=== PATIENT | female | born 1980 | race Caucasian/White ===

== ENCOUNTER 2025-02-12 11:33 | Outpatient (CLI) | payer MEDICAID, SELFPAY ==
--- OUTSIDE RECORDS SUMMARY | 2025-01-04 09:00 | XMS_ITS | Encounter Summary ---
Author Organization [employer] ([place], [place], [place], [place]) Address [address] [place] [address] Care Team Providers Care Wine Blender Name Role Phone Marni Kauffman DO Primary Care Provider [phone] Reason for Referral * Consultation (Routine) - Authorized Specialty Diagnoses / Procedures Referred By Ash t Referred To Contact Occupational Therapy Diagnoses Anterior neck pain Dysphagia Marni Kauffman DO [address] [place] [address] Phone: tel: fax: Referral ID Status Reason Start Date Expiration Date Visits Requested Visits Authorized [id number] Authorized Specialty Services Required 01/04/2025 01/04/2026 1 1 * Consultation (Routine) - Authorized Specialty Diagnoses / Procedures Referred By Ash cee Referred To Contact Physical Therapy Diagnoses Anterior neck pain Marni Kauffman DO [address] [place] [address] Phone: tel: fax: Referral ID Status Reason Start Date Expiration Date Visits Requested Visits Authorized [id number] Authorized Specialty Services Required 01/04/2025 01/04/2026 1 1 Reason for Visit * Reason Comments Follow-up Labs Encounter Details Date Type Department Care Team (Late st Contact Info) Description 01/04/2025 9:00 AM EDT Office Visit [facility] Primary Care [address] [place] [address] Marni Kauffman DO [address] [place] [address] Encounter to discuss test results (Primary Dx); Dysmenorrhea; Anterior neck pain; Dysphagia Social History Tobacco Use Types Packs/Day Years Used Date Smoking Tobacco: Never Smokeless Tobacco: Never Tobacco Cessation:Counseling Given: Not Answered Alcohol Use Standard Drinks/Week Comments Yes 5 (1 standard drink = 0.6 oz pure alcohol) I do like to sip on a plain shot of alcohol at night. [facility] - Mental Health Answer Date Recorde d Little interest or pleasure in doing things Not at all 01/03/2025 Feeling down, depressed, or hopeless Not at all 01/03/2025 Feeling of Stress Not on file 01/03/2025 Comments No Sex and Gender Information Value Date Recorded Sex Assigned at Not on file Legal Sex Female 9:01 AM CDT Gender Identity Not on file Sexual Orientation Not on file documented as of this encounter Last Filed Vital Signs Vital Sign Reading Time Taken Comments Blood Pressure 106/72 01/04/2025 8:56 AM EDT Pulse 68 01/04/2025 8:56 AM EDT Temperature 36.8 C (98.2 F) 01/04/2025 8:56 AM EDT Respiratory Rate 16 01/04/2025 8:56 AM EDT Oxygen Saturation 99% 01/04/2025 8:56 AM EDT Inhaled Oxygen Concentration - - Weight 61 kg (134 lb 6 oz) 01/04/2025 8:56 AM ED T Height 165.1 cm (5' 5 ) 01/04/2025 8:56 AM EDT Body Mass Index 22.36 01/04/2025 8:56 AM EDT documented in this encounter Progress Notes * Marni Kauffman DO - 01/04/2025 9:00 AM EDT Subjective Jada Joseph is a 44 y.o. female with active problems as below presents to clinic today for Follow-up (Labs) HPI Saw inbound call center agent and opted for total Hysterectomy without Oophorectomy Got a second opinion and saw Dr. Duenas and opted for surgical debulking instead of hysterectomy. Has agitation with ashwaganda and ginseng Can tolerate caffeine L -theonine makes her tired and gives her . Tolerated passionflower and reshi, Rebeca, Rhodioloa - gives weird dreams and makes her tired. Patient Active Problem List Diagnosis Date Noted Anterior neck pain 01/04/2025 Dysphagia 12/03/2024 Anxiety disorder with panic attacks 12/03/2024 Multiple food allergies 11/30/2024 Asthma 11/30/2024 Shingles of eyelid 11/30/2024 Menorrhagia 11/30/2024 Dysmenorrhea 11/30/2024 Uterine fibroid 06/20/2024 Perimenopausal 11/29/2021 Small intestinal bacterial overgrowth (SIBO) 11/29/2021 Current Outpatient Medications Medication Instructions albuterol 90 mcg/actuation inhaler 2 puffs, inhalation, Every 6 hours PRN clonazePAM (KLONOPIN) 0.5 mg, oral, 2 times daily montelukast (SINGULAIR) 10 mg, oral, Every Night Trulance 3 mg tab 1 tablet, Daily valACYclovir (VALTREX) 1,000 mg, oral, 3 times daily Allergies Allergen Reactions Egg Anaphylaxis, Diarrhea, Hives, Itching, Nausea And Vomiting and Swelling Milk Anaphylaxis, Diarrhea, Hives, Nausea And Vomiting, Rash and Swelling Other Anaphylaxis Milk/eggs/formaldehyde The following portions of the patient's chart were reviewed in this encounter and updated as appropriate: past medical history, surgical history, family history, tobacco history, allergies and medications. ROS documented in HPI Objective Vitals: 01/04/25 0856 BP: 106/72 BP Location: Right arm Patient Position: Sitting Cuff Size: Adult Long Pulse: 68 Resp: 16 Temp: 98.2 ??F (36.8 ??C) SpO2: 99% Weight: 61 kg (134 lb 6 oz) Height: 1.651 m (5' 5 ) Physical Exam Constitutional: Appearance: Normal appearance. She is normal weight. She is not ill-appearing. HENT: Head: Normocephalic and atraumatic. Nose: Nose normal. Neurological: General: No focal deficit present. Mental Status: She is alert and oriented to person, place, and time. Mental status is at baseline. Psychiatric: Mood and Affect: Mood normal. Behavior: Behavior normal. Thought Content: Thought content normal. Judgment: Judgment normal. Results: Office Visit on 11/30/2024 Component Date Value Ref Range Status Estradiol, Sensitive 12/21/2024 124.8 pg/mL Final Comment: Female: Follicular: 30.0 - 100.0 Luteal: 70.0 - 300.0 Postmenopausal: < 15.0 Methodology: Liquid chromatography tandem mass spectrometry(LC/MS/MS) Testosterone, Total, LC/MS 12/21/2024 19.1 ng/dL Final Comment: Female: Premenopausal 10.0 - 55.0 Postmenopausal 7.0 - 40.0 Testosterone, Free 12/21/2024 0.46 0.10 - 0.85 ng/dL Final % Free Testosterone 12/21/2024 2.43 0.50 - 2.80 % Final DHEA-Sulfate 12/21/2024 80.9 41.2 - 243.7 ug/dL Final Progesterone 12/21/2024 23.6 ng/mL Final Comment: Follicular phase 0.1 - 0.9 Luteal phase 1.8 - 23.9 Ovulation phase 0.1 - 12.0 First trimester 11.0 - 44.3 Second trimester 25.4 - 83.3 Third trimester 58.7 - 214.0 Postmenopausal 0.0 - 0.1 LH 12/21/2024 5.8 mIU/mL Final Comment: Adult Female Range Follicular phase 2.4 - 12.6 Ovulation phase 14.0 - 95.6 Luteal phase 1.0 - 11.4 Postmenopausal 7.7 - 58.5 FSH 12/21/2024 5.1 mIU/mL Final Comment: Adult Female Range Follicular phase 3.5 - 12.5 Ovulation phase 4.7 - 21.5 Luteal phase 1.7 - 7.7 Postmenopausal 25.8 - 134.8 Cortisol - AM 12/21/2024 10.4 6.2 - 19.4 ug/dL Final Assessment/Plan: Jada Joseph is a 44 y.o. female who has been evaluated today for The primary encounter diagnosis was Encounter to discuss test results. Diagnoses of Dysmenorrhea, Anterior neck pain, and Dysphagia were also pertinent to this visit. Discussion: Low DHEA, and suboptimal testosterone Normal estradiol and high normal progesterone Low normal cortisol Peridoxical reaction to medications Strong adrenal response. Will get complete DUCTH test to further evaluate. Agree with Dr. Duenas doing endometrial debridement and fibroid removal without hysterectomy. ICD-10-CM ICD-9-CM 1. Encounter to discuss test results Z71.2 V65.49 2. Dysmenorrhea N94.6 625.3 3. Anterior neck pain M54.2 723.1 AMB REFERRAL TO PHYSICAL THERAPY EVALUATE, TREAT AND PLAN OF CARE AMB REFERRAL TO OCCUPATIONAL THERAPY EVALUATE, TREAT AND PLAN OF CARE 4. Dysphagia R13.10 787.20 AMB REFERRAL TO OCCUPATIONAL THERAPY EVALUATE, TREAT AND PLAN OF CARE New Prescriptions No medications on file Modified Medications No medications on file Previous Medications ALBUTEROL 90 MCG/ACTUATION INHALER Inhale 2 puffs by mouth every 6 (six) hours as needed for shortness of breath or wheezing. CLONAZEPAM (KLONOPIN) 0.5 MG TABLET Take 1 tablet (0.5 mg total) by mouth 2 (two) times daily. Max Daily Amount: 1 mg MONTELUKAST (SINGULAIR) 10 MG TABLET Take 1 tablet (10 mg total) by mouth nightly. TRULANCE 3 MG TAB Take 1 tablet by mouth daily. VALACYCLOVIR (VALTREX) 1000 MG TABLET Take 1 tablet (1,000 mg total) by mouth 3 (three) times daily. Return in about 4 weeks (around 02/01/2025) for Integrative Lab Review ( 30 Min), Ok for Telehealth.SAMOAN testing review Time spent caring for the patient on today's visit including review of patient chart prior to entering the patient care room, outside record review, [id number] time with the patient for complaints,history and examination, discussing care options, and planning next follow-up was 45 minutes total by me. Marni Kauffman DO This note was partially generated using [facility] Dictation System, and there may be some incorrect words, spellings, and punctuation that were not noted in checking the note before saving. Note to Patient: The Century Cure Act makes medical noted like these available to patients in the interest of transparency. However, be advised this is a medical document. It is intended as peerto peer communication. It is written in medical language and may contain abbreviations or verbiage that are unfamiliar. It may appear blunt or direct. Medical documents are intended to carry relevantinformation, facts as evident, and the clinical opinion of the physician. documented in this encounter Plan of Treatment Upcoming Encounters Date Type Department Care Team (Latest Contact Info) Description 02/20/2025 3:45 PM EDT Video - Telemedicine [facility] Primary Care [address] [place] [address] Marni Kauffman DO [address] [place], [place] [id number] 02/25/2025 9:31 AM EDT Hospital Encounter [facility] Surgery Department [address] [place] [address] Rebeka Taveras MD [address] [facility] [address] [place], [place] [id number] 02/25/2025 9:31 AM EDT - 02/25/2025 1:51 PM EDT Surgery [facility] Surgery Department [address] [place] [address] Rebeka Taveras MD [address] [place], [place] [id number] LAPAROSCOPY WITH ROBOTIC ASSISTNACE AND LASER, MYOMECTOMY, POSSIBLE RESECTION OF ENDOMETRIOSIS, HYSTEROSCOPY, ENDOMETRIAL ABLATION Scheduled Procedures Name Priority Associated Diagnoses Date/Ti me ROBOTIC LAPAROSCOPY,MYOMECTOMY Submucous leiomyoma of uterus Intramural leiomyoma of uterus Excessive or frequent menstruation Personal history of diseases of blood and blood-forming organs Polyp of corpus uteri 02/25/2025 9:31 AM EDT HYSTEROSCOPY, THERAPEUTIC Submucous leiomyoma of uterus Intramural leiomyoma of uterus Excessive or frequent menstruation Personal history of diseases of blood and blood-forming organs Polyp of corpus uteri 02/25/2025 9:31 AM EDT ABLATION, ENDOMETRIUM Submucous leiomyoma of uterus Intramural leiomyoma of uterus Excessive or frequent menstruation Personal history of diseases of blood and blood-forming organs Polyp of corpus uteri 02/25/2025 9:31 AM EDT Scheduled Referrals Name Type Priority Associated Diagnoses Order Schedule AMB REFERRAL TO PHYSICAL THERAPY EVALUATE, TREAT AND PLAN OF CARE Outpatient Referral Routine Anterior neck pain Expected: 01/04/2025 (Approximate), Expires: 01/04/2026 AMB REFERRAL TO OCCUPATIONAL THERAPY EVALUATE, TREAT AND PLAN OF CARE Outpatient Referral Routine Anterior neck pain Dysphagia Expected: 01/04/2025 (Approximate), Expires: 01/04/2026 documented as of this encounter Visit Diagnoses Diagnosis Encounter to discuss test results- Primary Other specified counseling Dysmenorrhea Anterior neck pain Cervicalgia Dysphagia Dysphagia, unspecified Submucous leiomyoma of uterus Intramural leiomyoma of uterus Excessive or frequent menstruation Personal history of diseases of blood and blood-forming organs Polyp of corpus uteri documented in this encounter Care Teams Wine Blender Relationship Specialty Start Date End Date Marni Kauffman DO [address] [place] [address] PCP - General Family Medicine 11/30/24 documented as of this encounter
--- OUTSIDE RECORDS SUMMARY | 2025-02-12 11:36 | XMS_ITS | Clinical Summary ---
Author Organization [employer] ([place], [place], [place], [place]) Address [address] [place] [address] Care Team Providers Care Smelter Charger Name Role Phone DalyMarni Primary Care Provider [phone] Allergies Active Allergy Reactions Criticality Noted Date Comments Egg Anaphylaxis,Diarrhea ,Hive s,Itching,Nausea And Vomiting,Swelling High 1978 Milk Anaphylaxis,Diarrhea ,Hive s,Nausea And Vomiting,Rash,Swelling High 1978 Other Anaphylaxis High 09/11/2020 Milk/eggs/formaldehyde Medications montelukast (Singulair) 10 mg tabletIndicatio ns:Asthma Take 1 tablet (10 mg total) by mouth nightly. 30 tablet 11 5 Active albuterol 90 mcg/actuation inhalerIndicati ons:Asthma Inhale 2 puffs by mouth every 6 (six) hours as needed for shortness of breath or wheezing. 1 Inhaler 11 5 Active valACYclovir (VALTREX) 1000 MG tabletIndicatio ns:Shingles of eyelid Take 1 tablet (1,000 mg total) by mouth 3 (three) times daily. 90 tablet 3 5 Active clonazePAM (KlonoPIN) 0.5 MG tabletIndicatio ns:Anxiety disorder with panic attacks Take 1 tablet (0.5 mg total) by mouth 2 (two) times daily. Max Daily Amount: 1 mg 60 tablet 2 5 Active Trulance 3 mg tab Take 1 tablet by mouth daily. 5 Active Active Problems Problem Noted Date Diagnosed Date Anterior neck pain 01/04/2025 Dysphagia 12/03/2024 Anxiety disorder with panic attacks 12/03/2024 Multiple food allergies 11/30/2024 Asthma 11/30/2024 Shingles of eyelid 11/30/2024 Menorrhagia 11/30/2024 Dysmenorrhea 11/30/2024 Uterine fibroid 06/20/2024 Overview (11/30/2024): Transvaginal ultrasound and MRI results showing fibroids Perimenopausal 11/29/2021 Overview (11/30/2024): Unusually heavy periods with more pain. Take maximum dosage of motrin for several days a month and bleed during ovulation as well. 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) Encounters Date Type Department Care Team Description 01/04/2025 9:00 AM EDT Office Visit [facility] Primary Care [address] [place] [address] [address] Marni Kauffman DO Encounter to discuss test results (Primary Dx); Dysmenorrhea; Anterior neck pain; Dysphagia 01/04/2025 Travel 01/01/2025 Telephone [facility] Primary Care [address] [place] [place] [address] Marni Kauffman DO FORMS REQUEST 12/21/2024 Telephone [facility] Primary Care [address] [place] [address] Marni Kauffman DO ORDER REQUEST 12/18/2024 Telephone [facility] Primary Care [address] [place] [address] Marni Kuaffman DO CHECK STATUS OF EXISTING REFERRAL 12/14/2024 Telephone [facility] FORENSIC PATHOLOGIST - FAST FELT [address] [place] [address] Tootie Turner DO Procedure (Called pt to schedule her surgery, she will call me back when she is ready to schedule it) 12/12/2024 10:40 AM EDT Office Visit [facility] FORENSIC PATHOLOGIST [address] [address] Tootie Turner DO Menorrhagia with regular cycle (Primary Dx); Dysmenorrhea; Intramural and submucous leiomyoma of uterus 12/12/2024 Surgery Prep [facility] FORENSIC PATHOLOGIST [facility] [address] [place] [address] Sara Yeboah RN Menorrhagia with regular cycle (Primary Dx); Dysmenorrhea; Intermenstrual bleeding 11/30/2024 2:30 PM EDT Office Visit [facility] Primary Care [address] [place] [address] Marni Kauffman DO Encounter to establish care (Primary Dx); Multiple food allergies; Asthma; Small intestinal bacterial overgrowth (SIBO); Dysmenorrhea; Menorrhagia; Uterine fibroid; Perimenopausal; Shingles of eyelid; Anxiety disorder with panic attacks; Dysphagia 11/19/2024 Abstract [facility] Primary Care [address] [place] [address] [place] [address] Marni Kauffman DO from Last 3 Months Family History Medical History Relation Name Comments Hypertension Father Mike Thyroid disease Maternal Aunt Debora Alcohol abuse Maternal Grandfather Otis Asthma Mother Prabha Breast cancer Mother Prabha She had M.S. s pascale 1975 but ultimately of cancer a year ago Heart disease Paternal Grandmother Paulina Vision loss Paternal Grandmother Paulina Macular degeneration Relation Name Status Comments Father Mike Maternal Aunt Debora Maternal Grandfather Otis Mother Prabha Paternal Grandmother Paulina Social History Tobacco Use Types Packs/Day Years Used Date Smoking Tobacco: Never Smokeless Tobacco: Never Tobacco Cessation:Counseling Given: Not Answered Alcohol Use Standard Drinks/Week Comments Yes 5 (1 standard drink = 0.6 oz pure alcohol) I do like to sip on a plain shot of alcohol at night. [facility] - Mental Health Answer Date Recorde d [...] on file Sexual Orientation Not on file Last Filed Vital Signs Vital Sign Reading [...] Mass Index 22.36 01/04/2025 8:56 AM EDT Plan of Treatment Upcoming Encounters Date Type Department Care Team (Latest Contact Info) Description 02/20/2025 3:45 PM EDT Video - Telemedicine [facility] Primary Care [address] [place] [address] Marni Kauffman DO [address] [place], [place] [id number] 02/25/2025 9:31 AM EDT Hospital Encounter [facility] Surgery Department [address] [place] [address] Rebeka Taveras MD [address] [facility] [address] [place] [address] 02/25/2025 9:31 AM EDT - 02/25/2025 1:51 PM EDT Surgery [facility] Surgery Department [address] [place] [address] Rebeka Taveras MD [address] [facility] [address] [place] [address] LAPAROSCOPY WITH ROBOTIC ASSISTNACE AND LASER, MYOMECTOMY, [...] of corpus uteri 02/25/2025 9:31 AM EDT Health Maintenance Due Date Last Done Comments CT Colonography 1978 Colonoscopy 1978 Colorectal Cancer Screening 1978 FOBT/FIT 1978 Fit-DNA (Cologuard) 1978 Sigmoidoscopy 1978 HIV Screening 1993 Hepatitis C Screening 1996 DTAP/TDAP/TD VACCINES (1 - Tdap) 1997 Pneumococcal Vaccine: 0-49 Years (1 of 2 - PCV) 1996 Pap Smear 1999 Breast Cancer Screening 2018 Lipid Panel 2023 COVID-19 VACCINE (2 - season) 2024 Influenza Vaccine (#1) 2025 Depression Screening (12+) 01/03/2026 01/03/2025 Tobacco Cessation Counseling and Screening (12+) 01/0401/04/2025 Procedures Procedure Name Priority Date/Time Associated Diagnosis Comments CORTISOL, AM Routine 12/21/2024 8:20 AM EDT Dysmenorrhea Menorrhagia Uterine fibroid Perimenopausal FSH/LH Routine 12/21/2024 8:20 AM EDT Dysmenorrhea Menorrhagia Uterine fibroid Perimenopausal PROGESTERONE Routine 12/21/2024 8:20 AM EDT Dysmenorrhea Menorrhagia Uterine fibroid Perimenopausal DHEA SULFATE Routine 12/21/2024 8:20 AM EDT Dysmenorrhea Menorrhagia Uterine fibroid Perimenopausal TESTOSTERONE, F EQLIB+T LC/MS Routine 12/21/2024 8:20 AM EDT Dysmenorrhea Menorrhagia Uterine fibroid Perimenopausal ESTRADIOL, SENSITIVE Routine 12/21/2024 8:20 AM EDT Dysmenorrhea Menorrhagia Uterine fibroid Perimenopausal from Last 3 Months Results * ESTRADIOL, SENSITIVE (12/21/2024 8:20 AM EDT) Estradiol, Sensitive 124.8 pg/mL [facility] Comment: Female: Follicular: 30.0 - 100.0 Luteal: 70.0 - 300.0 Postmenopausal: < 15.0 Methodology: Liquid chromatography tandem mass spectrometry(LC/MS/MS) Blood 12/21/2024 8:20 AM EDT 12/21/2024 Narrative [facility] - 12/28/2024 3:06 AM EDT Test(s) [id number], Sensitive was developed and its performance characteristics determined by [facility]. It has not been cleared or approved by the Food and Drug Administration. Performed at: 01 - [address] [id number] Information Writer: Arpita Phan MD, Phone: [phone] us Nova White DO LAB BLOOD ORDERABLES Final Resul t [facility] * Testosterone, F Eqlib+T LC/MS (12/21/2024 8:20 AM EDT) Testosterone, Total, LC/MS 19.1 ng/dL [facility] Comment: Female: Premenopausal 10.0 - 55.0 Postmenopausal 7.0 - 40.0 Testosterone, Free 0.46 0.10 - 0.85 ng/dL [facility] % Free Testosterone 2.43 0.50 - 2.80 % [facility] 12/21/2024 8:20 AM EDT 12/21/2024 Narrative [facility] - 12/28/2024 3:06 AM EDT Test(s) [id number], Total, LC/MS was developed and its performance characteristics determined by [facility]. It has not been cleared or approved by the Food and Drug Administration. Performed at: [address] [id number] Information Writer: Arpita Phan MD, Phone: [phone] Nova White LAB BLOOD ORDERABLES Final Resul t Performing Organization Address [facility] de Phone Number [facility] * FSH/LH (12/21/2024 8:20 AM EDT) LH 5.8 mIU/mL [facility] Comment: Adult Female Range Follicular phase 2.4 - 12.6 Ovulation phase 14.0 - 95.6 Luteal phase 1.0 - 11.4 Postmenopausal 7.7 - 58.5 FSH 5.1 mIU/mL [facility] Comment: Adult Female Range Follicular phase 3.5 - 12.5 Ovulation phase 4.7 - 21.5 Luteal phase 1.7 - 7.7 Postmenopausal 25.8 - 134.8 Blood 12/21/2024 8:20 AM EDT 12/21/2024 Narrative [facility] - 12/28/2024 3:06 AM EDT Performed at: - [address] [id number] Information Writer: Jose Alejandro Augustin PhD, Phone: [phone] Nova White LAB BLOOD ORDERABLES Final Resul t Performing Organization Address [facility] Co de Phone Number [facility] * Progesterone (12/21/2024 8:20 AM EDT) Progesterone 23.6 ng/mL [facility] Comment: Follicular phase 0.1 - 0.9 Luteal phase 1.8 - 23.9 Ovulation phase 0.1 - 12.0 First trimester 11.0 - 44.3 Second trimester 25.4 - 83.3 Third trimester 58.7 - 214.0 Postmenopausal 0.0 - 0.1 Blood 12/21/2024 8:20 AM EDT 12/21/2024 Narrative [facility] - 12/28/2024 3:06 AM EDT Performed at: [address] [place] [id number] Information Writer: Jose Alejandro Augustin PhD, Phone: [phone] Nova White DO LAB BLOOD ORDERABLES Final Resul t Performing Organization Address [facility] de Phone Number [facility] * DHEA Sulfate (12/21/2024 8:20 AM EDT) DHEA-Sulfate 80.9 41.2 - 243.7 ug/dL [facility] Blood 12/21/2024 8:20 AM EDT 12/21/2024 Narrative [facility] - 12/28/2024 3:06 AM EDT Performed at: [address] [place] [id number] Information Writer: Jose Alejandro Augustin PhD, Phone: [phone] Nova White DO LAB BLOOD ORDERABLES Final Resul t Performing Organization Address [facility] de Phone Number [facility] * Cortisol, AM (12/21/2024 8:20 AM EDT) Cortisol - AM 10.4 6.2 - 19.4 ug/dL [facility] Blood 12/21/2024 8:20 AM EDT 12/21/2024 Narrative [facility] - 12/28/2024 3:06 AM EDT Performed at: [address] [place] [id number] Information Writer: Jose Alejandro Augustin PhD, Phone: [phone] Nova White DO LAB BLOOD ORDERABLES Final Resul t Performing Organization Address [facility] Co de Phone Number [facility] from Last 3 Months Insurance MEDICAID OF [place] Member Subscriber Plan / Payer (Ef fective 2024-Present) Name:Willie Josephn Relation to Subscriber:Self Name:Willie Josephn Payer ID:[id number] Group ID:Not on file Type:Not on file Address: [address] MEDICAID Care Teams Smelter Charger Relationship Specialty Start Date End Date Marni Kauffman DO [address] [place] [address] PCP - General Family Medicine 11/30/24
--- OUTSIDE RECORDS SUMMARY | 2025-02-12 11:36 | XMS_ITS | Encounter Summary ---
Author Organization [employer] ([place], [place], [place], [place]) Address [address] [place] [address] Care Team Providers Care Slubber Machine Operator Name Role Phone Kesha Maxwell DO Primary Care Provider Reason for Visit * Reason Onset Date Comments ORDER REQUEST 12/21/2024 Encounter Details Date Type Department Care Team (Late st Contact Info) Description 12/21/2024 Telephone [facility] Primary [facility] [address] [place] [place] [address] Kesha Maxwell DO [address] [place] [address] ORDER REQUEST Social History Tobacco Use Types Packs/Day Years Used Date Smoking Tobacco: Never Smokeless Tobacco: Never Alcohol Use Standard Drinks/Week Comments Yes 5 (1 standard drink = 0.6 oz pure alcohol) I do like to sip on a plain shot of alcohol at night. [facility] - Mental Health Answer Date Recorde d [...] on file documented as of this encounter Functional Status documented as of this encounter Miscellaneous Notes * Telephone Encounter - Bot NIRALI James - 12/21/2024 9:13 AM EDT FROM: Leandra Lange TO: [facility] CLINICAL RADIOLOGIC TECH [[id number]] SUBJECT: Order Request PROVIDER: KESHA MAXWELL [[id number]] DEPARTMENT: [facility] [address] [[id number]] ENCOUNTER REASON FOR CALL: ORDER REQUEST ENCOUNTER TYPE: Telephone REASON FOR CALL: Order or Lab or Durable Medical Equipment DME or Other Medical Supplies Request PATIENT CALLING TO OBTAIN ORDER FOR: Blood Work BLOOD WORK TYPE: N/a DIAGNOSIS/REASON FOR ORDER: N/a DISCUSSED WITH PROVIDER? Yes ORDER TO BE SENT TO: Kesha Maxwell LAST VISIT: 2024-11-30 NEXT VISIT: 2025-01-04 MESSAGE PRIORITY: Routine ADDITIONAL INFORMATION: Pt currently at the lab and they don't have orders, I see them in the chart, transfer to office forassistance was successful. CALLER'S NAME: Jada Joseph RELATION TO PATIENT: Self [1] PREFERRED LANGUAGE: Japanese BEST CALL BACK PHONE NUMBER: Home Phone: ([phone]) WHAT IS THE BEST WAY FOR THE OFFICE TO CONTACT YOU?: OK to leave message on voicemail documented in this encounter Plan of Treatment Upcoming Encounters Date Type Department Care Team (Latest Contact Info) Description 02/20/2025 3:45 PM EDT Video - Telemedicine [facility] Primary [facility] [address] [place] [place] [address] Kesha Maxwell DO [address] [place] [address] 02/25/2025 9:31 AM EDT Hospital Encounter [facility] Surgery Department [address] [place] [address] Rebeka Taveras MD [address] [facility] [address] [place] [address] 02/25/2025 9:31 AM EDT - 02/25/2025 1:51 PM EDT Surgery [facility] Surgery Department [address] [place] [address] Rebeka Taveras MD [address] [facility] [address] [place] [address] LAPAROSCOPY WITH ROBOTIC ASSISTNACE AND LASER, MYOMECTOMY, POSSIBLE RESECTION OF ENDOMETRIOSIS, HYSTEROSCOPY, ENDOMETRIAL ABLATION Scheduled Procedures Name Priority Associated Diagnoses Date/Ti nj ROBOTIC LAPAROSCOPY,MYOMECTOMY Submucous leiomyoma of uterus Intramural [...] of corpus uteri 02/25/2025 9:31 AM EDT documented as of this encounter Visit Diagnoses Not on filedocumented in this encounter Care Teams Slubber Machine Operator Relationship Specialty Start Date End Date Kesha Maxwell DO [address] [place], [place] [address] PCP - General Family Medicine 11/30/24 documented as of this encounter
--- OUTSIDE RECORDS SUMMARY | 2025-02-12 11:36 | XMS_ITS | Encounter Summary ---
Author Organization [employer] ([place], [place], [place], [place]) Address [address] [place] [address] Care Team Providers Care Research Phlebotomist Name Role Phone Marni Kauffman DO Primary Care Provider [phone] Encounter Details Date Type Department Care Team (Latest Contact Info) Description 01/04/2025 Travel Social History Tobacco Use Types Packs/Day Years Used Date Smoking Tobacco: Never Smokeless Tobacco: Never Alcohol Use Standard Drinks/Week Comments Yes 5 (1 standard drink = 0.6 oz pure alcohol) I do like to sip on a plain shot of alcohol at night. [facility] - Mental Health Answer Date [...] on file documented as of this encounter Plan of Treatment Upcoming Encounters Date Type Department Care Team (Latest Contact Info) Description 02/20/2025 3:45 PM EDT Video - Telemedicine [facility] Primary Care [address] [place] [address] Marni Kauffman DO [address] [place] [address] 02/25/2025 9:31 AM EDT Hospital Encounter [facility] Surgery Department [address] [place] [address] Rebeka Taveras MD [address] [place] [address] 02/25/2025 9:31 AM EDT - 02/25/2025 1:51 PM EDT Surgery [facility] Surgery Department [address] [place] [address] Rebeka Taveras MD [address] [place] [address] LAPAROSCOPY WITH ROBOTIC ASSISTNACE AND LASER, MYOMECTOMY, [...] on filedocumented in this encounter Care Teams Research Phlebotomist Relationship Specialty Start Date End Date Marni Kauffman DO [address] [place] [address] PCP - General Family Medicine 11/30/24 documented as of this encounter
--- OUTSIDE RECORDS SUMMARY | 2025-02-12 11:36 | XMS_ITS | Encounter Summary ---
Author Organization [employer] ([place], [place], [place], [place]) Address [address] [place] [address] Care Team Providers Care Systems Technician Name Role Phone Kesha Maxwell DO Primary Care Provider [phone] Reason for Visit * Reason Onset Date Comments FORMS REQUEST 01/01/2025 Encounter Details Date Type Department Care Team (Late st Contact Info) Description 01/01/2025 Telephone [facility] Primary Care [address] [place] [address] Kesha Maxwell DO [address] [place] [address] FORMS REQUEST Social History Tobacco Use Types Packs/Day Years Used Date Smoking Tobacco: Never Smokeless Tobacco: Never Alcohol Use Standard Drinks/Week Comments Yes 5 (1 standard drink = 0.6 oz pure alcohol) I do like to sip on a plain shot of alcohol at night. Comments No Sex and Gender Information Value Date Recorded Sex Assigned at Not on file Legal Sex Female 9:01 AM CDT Gender Identity Not on file Sexual Orientation Not on file documented as of this encounter Miscellaneous Notes * Telephone Encounter - Gabbi Fallon CMA - 01/01/2025 2:53 PM EDT My chart message sent * Telephone Encounter - Howie CAMPOVERDE Onenessa James - 01/01/2025 11:37 AM EDT FROM: Veronica Colindres TO: [facility] SCRAPER OPERATOR STAFF [[id number]] SUBJECT: Forms Request PROVIDER: KESHA MAXWELL [[id number]] DEPARTMENT: [facility] [address] [[id number]] ENCOUNTER REASON FOR CALL: FORMS REQUEST ENCOUNTER TYPE: Telephone REQUEST TYPE: ALL Other Forms TYPE OF FORM REQUESTING: Other IF OTHER FORM REQUEST, PLEASE SPECIFY: Copies of recent labs done 12/21/24 PATIENT REQUESTING TO: Fax form FAX LOCATION: Dr. Darcy NYE LOCATION PHONE NUMBER: [phone] FAX NUMBER [phone] HAS PROBLEM BEEN DISCUSSED WITH PROVIDER? Yes APPOINTMENT OFFERED? No IF NO APPOINTMENT OFFERED, EXPLAIN: Just wants copies of labs faxed CHANNEL USED TO SEND FORM: Other IF OTHER CHANNEL, PLEASE SPECIFY: Na DATE FORM WAS DROPPED OFF/SENT: 2025-01-01 FORM GIVEN/SENT TO: Na DATE FORM NEEDED BACK: 2025-01-01 LAST VISIT DATE IS NOT APPLICABLE: Yes NEXT VISIT DATE IS NOT APPLICABLE: Yes MESSAGE PRIORITY: Routine CALLER'S NAME: aJda Joseph RELATION TO PATIENT: Self [1] PREFERRED LANGUAGE: Bangladeshi BEST CALL BACK PHONE NUMBER: Home Phone: ([phone]) WHAT IS THE BEST WAY FOR THE OFFICE TO CONTACT YOU?: OK to leave message with whoever answers the phone documented in this encounter Plan of Treatment Upcoming Encounters Date Type Department Care Team (Latest Contact Info) Description 02/20/2025 3:45 PM EDT Video - Telemedicine [facility] Primary Care [address] [place] [address] Kesha Maxwell, DO [address] [place], [place] [address] 02/25/2025 9:31 AM EDT Hospital Encounter [facility] Surgery Department [address] [place] [address] Rebeka Taveras MD [address] [facility] [address] [place], [place] [address] 02/25/2025 9:31 AM EDT - 02/25/2025 1:51 PM EDT Surgery [facility] Surgery Department [address] [place] [address] Rebeka Taveras MD [address] [place] [address] LAPAROSCOPY WITH ROBOTIC ASSISTNACE AND LASER, MYOMECTOMY, POSSIBLE RESECTION OF ENDOMETRIOSIS, HYSTEROSCOPY, ENDOMETRIAL ABLATION Scheduled Procedures Name Priority Associated Diagnoses Date/Ti pa ROBOTIC LAPAROSCOPY,MYOMECTOMY Submucous leiomyoma of uterus Intramural [...] on filedocumented in this encounter Care Teams Systems Technician Relationship Specialty Start Date End Date Kesha Maxwell DO [address] [place] [address] PCP - General Family Medicine 11/30/24 documented as of this encounter
--- OUTSIDE RECORDS SUMMARY | 2025-02-12 11:36 | XMS_ITS | Referral Summary ---
Author Organization [employer] ([place], [place], [place], [place]) Address [address] [place] [address] Care Team Providers Care Youth Worker Name Role Phone Marni Kauffman DO Primary Care Provider [phone] Encounters Date Type Department Care Team Description 01/04/2025 Travel 01/04/2025 9:00 AM EDT Office Visit [facility] Primary Care [address] [place] [address] Marni Kauffman DO Encounter to discuss test results (Primary Dx); Dysmenorrhea; Anterior neck pain; Dysphagia 01/01/2025 Telephone [facility] Primary Care [address] [place] [address] Marni Kauffman DO FORMS REQUEST 12/21/2024 Telephone [facility] Primary Care [address] [place] [address] Marni Kauffman DO ORDER REQUEST 12/18/2024 Telephone [facility] Primary Care [address] [place] [address] Marni Kauffman DO CHECK STATUS OF EXISTING REFERRAL 12/14/2024 Telephone [facility] LOG DECKMAN - [employer] [address] [facility] [address] [place] [address] Tootie Turner DO Procedure (Called pt to schedule her surgery, she will call me back when she is ready to schedule it) 12/12/2024 Surgery Prep [facility] LOG DECKMAN - [place] [address] [place] [address] Sara Yeboah RN Menorrhagia with regular cycle (Primary Dx); Dysmenorrhea; Intermenstrual bleeding 12/12/2024 10:40 AM EDT Office Visit [facility] LOG DECKMAN - [place] [address] [place] [address] Tootie Turner DO Menorrhagia with regular cycle (Primary Dx); Dysmenorrhea; Intramural and submucous leiomyoma of uterus 11/30/2024 2:30 PM EDT Office Visit [facility] Primary Care [address] [place] [address] Marni Kauffman DO Encounter to establish care (Primary Dx); Multiple food allergies; Asthma; Small intestinal bacterial overgrowth (SIBO); Dysmenorrhea; Menorrhagia; Uterine fibroid; Perimenopausal; Shingles of eyelid; Anxiety disorder with panic attacks; Dysphagia 11/19/2024 Abstract [facility] Primary Care [address] [place] [address] Marni Kauffman DO from Last 3 Months Allergies Active Allergy Reactions Criticality Noted Date [...] Daily Amount: 1 mg 60 tablet 2 Active Trulance 3 mg tab Take 1 tablet by mouth daily. 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 [facility] - Mental Health Answer Date Recorde [...] 02/20/2025 3:45 PM EDT Video - Telemedicine [facility] Primary Care [address] [place] [address] Marni Kauffman DO [address] [place] [address] 02/25/2025 9:31 AM EDT Hospital Encounter [facility] Surgery Department [address] [place] [address] Rebeka Taveras MD [address] [facility] [address] [place] [address] 02/25/2025 9:31 AM EDT - 02/25/2025 1:51 PM EDT Surgery [facility] Surgery Department [address] [place] [address] Rebeka Taveras MD [address] [facility] [address] [place] [address] LAPAROSCOPY WITH ROBOTIC ASSISTNACE AND LASER, MYOMECTOMY, POSSIBLE RESECTION OF ENDOMETRIOSIS, HYSTEROSCOPY, ENDOMETRIAL ABLATION Scheduled Procedures Name Priority Associated Diagnoses Date/Ti vt ROBOTIC LAPAROSCOPY,MYOMECTOMY Submucous leiomyoma of uterus Intramural [...] of corpus uteri 02/25/2025 9:31 AM EDT Procedures Procedure Name Priority Date/Time Associated Diagnosis [...] * ESTRADIOL, SENSITIVE (12/21/2024 8:20 AM EDT) Pathologist [facility] Estradiol, Sensitive 124.8 pg/mL [facility] Comment: Female: Follicular: 30.0 - 100.0 Luteal: 70.0 - 300.0 Postmenopausal: < 15.0 Methodology: Liquid chromatography tandem mass spectrometry(LC/MS/MS) Blood 12/21/2024 8:20 AM EDT 12/21/2024 Narrative [facility] - 12/28/2024 3:06 AM EDT Test(s) [id number], Sensitive was developed and its performance characteristics determined by [facility]. It has not been cleared or approved by the Food and Drug Administration. Performed at: - [facility] [id number] Music Store Manager: Arpita Phan MD, Phone: [phone] [facility] LAB BLOOD ORDERABLES Final Resul t Performing Organization Address [facility] de Phone Number [facility] * Testosterone, F Eqlib+T LC/MS (12/21/2024 8:20 AM EDT) Testosterone, Total, LC/MS 19.1 ng/dL [facility] Comment: Female: Premenopausal 10.0 - 55.0 Postmenopausal 7.0 - 40.0 Testosterone, Free 0.46 0.10 - 0.85 ng/dL [facility] % Free Testosterone 2.43 0.50 - 2.80 % [facility] 12/21/2024 8:20 AM EDT 12/21/2024 Narrative [facility] - 12/28/2024 3:06 AM EDT Test(s) [id number], Total, LC/MS was developed and its performance characteristics determined by [facility]. It has not been cleared or approved by the Food and Drug Administration. Performed at: [facility] [id number] Music Store Manager: Arpita Phan MD, Phone: [phone] Nova White LAB BLOOD ORDERABLES Final Resul t Performing Organization Address [facility] de Phone Number [facility] * FSH/LH (12/21/2024 8:20 AM EDT) LH 5.8 mIU/mL [facility] Comment: Adult Female Range Follicular phase 2.4 - 12.6 Ovulation phase 14.0 - 95.6 Luteal phase 1.0 - 11.4 Postmenopausal 7.7 - 58.5 FSH 5.1 mIU/mL [facility] Comment: Adult Female Range Follicular phase 3.5 - 12.5 Ovulation phase 4.7 - 21.5 Luteal phase 1.7 - 7.7 Postmenopausal 25.8 - 134.8 Blood 12/21/2024 8:20 AM EDT 12/21/2024 Narrative [facility] - 12/28/2024 3:06 AM EDT Performed at: [address] [place] [id number] Music Store Manager: Jose Alejandro Augustin PhD, Phone: [phone] us Nova White DO LAB BLOOD ORDERABLES Final Resul t Performing Organization Address [facility] de Phone Number [facility] * Progesterone (12/21/2024 8:20 AM EDT) Progesterone 23.6 ng/mL [facility] Comment: Follicular phase 0.1 - 0.9 Luteal phase 1.8 - 23.9 Ovulation phase 0.1 - 12.0 First trimester 11.0 - 44.3 Second trimester 25.4 - 83.3 Third trimester 58.7 - 214.0 Postmenopausal 0.0 - 0.1 Blood 12/21/2024 8:20 AM EDT 12/21/2024 Narrative [facility] - 12/28/2024 3:06 AM EDT Performed at: [address] [id number] Music Store Manager: Jose Alejandro Augustin PhD, Phone: [phone] Nova White DO LAB BLOOD ORDERABLES Final Resul t Performing Organization Address [facility] de Phone Number [facility] * DHEA Sulfate (12/21/2024 8:20 AM EDT) DHEA-Sulfate 80.9 41.2 - 243.7 ug/dL [facility] Blood 12/21/2024 8:20 AM EDT 12/21/2024 Narrative [facility] - 12/28/2024 3:06 AM EDT Performed at: [address] [id number] Music Store Manager: Jose Alejandro Augustin PhD, Phone: [phone] us Nova White DO LAB BLOOD ORDERABLES Final Resul t [facility] * Cortisol, AM (12/21/2024 8:20 AM EDT) Cortisol - AM 10.4 6.2 - 19.4 ug/dL [facility] Blood 12/21/2024 8:20 AM EDT 12/21/2024 Narrative [facility] - 12/28/2024 3:06 AM EDT Performed at: 02 - [facility] [address] [id number] Music Store Manager: Jose Alejandro Augustin PhD, Phone: [phone] us Jareda White DO LAB BLOOD ORDERABLES Final Resul t [facility] from Last 3 Months Insurance MEDICAID [facility] MEDICAID Care Teams Youth Worker Relationship Specialty Start Date End Date Marni Kauffman DO [address] [place] [address] PCP - General Family Medicine 11/30/24
--- OUTSIDE RECORDS SUMMARY | 2025-02-12 11:36 | XMS_ITS | Encounter Summary ---
Author Organization [employer] ([place], [place], [place], [place]) Address [address] [place] [address] Care Team Providers Care Pathologist Name Role Phone Kesha Maxwell DO Primary Care Provider [phone] Reason for Visit * Reason Onset Date Comments Appointment 10/11/2024 Encounter Details Date Type Department Care Team (Late st Contact Info) Description 10/11/2024 Telephone [facility] Primary Care [address] [place] [address] Kesha Maxwell DO [address] [place] [address] Appointment Social History Tobacco Use Types Packs/Day Years Used Date Smoking Tobacco: Never Assessed Comments Unknown Sex and Gender Information Value Date Recorded Sex Assigned at Not on file Legal Sex Female 9:01 AM CDT Gender Identity Not on file Sexual Orientation Not on file documented as of this encounter Miscellaneous Notes * Telephone Encounter - Bot EST [employer] Erika - 10/11/2024 10:27 AM EDT FROM: Delilah Hoyt CSN: TO: [facility] [employer] SALES CONSULTANT STAFF [[id number]] SUBJECT: Appointment Request PROVIDER: KESHA MAXWELL [[id number]] DEPARTMENT: [facility] [[id number]] ENCOUNTER REASON FOR CALL: APPOINTMENT [375] ENCOUNTER TYPE: Telephone REASON FOR APPOINTMENT REQUEST: Requested Provider Unavailable,No Available Appointment REQUESTED PROVIDER: KESHA MAXWELL NEXT AVAILABLE APPOINTMENT SCHEDULED? No LAST VISIT DATE IS NOT APPLICABLE: Yes MESSAGE PRIORITY: Routine ADDITIONAL INFORMATION: No availability for New patient appt out to February. Pt would still like to schedule a New Patient appt after that date if possible. Please call her back at [phone] to schedule. CALLER'S NAME: Jada Joseph RELATION TO PATIENT: Self [1] PREFERRED LANGUAGE: Canadian BEST CALL BACK PHONE NUMBER: Other: ([phone]) WHAT IS THE BEST WAY FOR THE OFFICE TO CONTACT YOU?: OK to leave message on voicemail documented in this encounter Plan of Treatment Upcoming Encounters Date Type Department Care Team (Latest Contact Info) Description 02/20/2025 3:45 PM EDT Video - Telemedicine [facility] Primary Care [address] [place] [address] Kesha Maxwell DO [address] [place], [place] [id number] 02/25/2025 9:31 AM EDT Hospital Encounter [facility] Surgery Department [address] [place] [address] Rebeka Taveras MD [address] [facility] [address] [place], [place] [id number] 02/25/2025 9:31 AM EDT - 02/25/2025 1:51 PM EDT Surgery [facility] Surgery Department [address] [place] [address] Rebeka Taveras MD [address] [facility] [address] [place] [address] LAPAROSCOPY WITH ROBOTIC ASSISTNACE AND LASER, MYOMECTOMY, POSSIBLE RESECTION OF ENDOMETRIOSIS, HYSTEROSCOPY, ENDOMETRIAL ABLATION Scheduled Procedures Name Priority Associated Diagnoses Date/Ti or ROBOTIC LAPAROSCOPY,MYOMECTOMY Submucous leiomyoma of uterus Intramural [...] on filedocumented in this encounter Care Teams Pathologist Relationship Specialty Start Date End Date Kesha Maxwell DO [address] [place] [address] PCP - General Family Medicine 11/30/24 documented as of this encounter
--- OUTSIDE RECORDS SUMMARY | 2025-02-12 11:36 | XMS_ITS | Encounter Summary ---
Author Organization [employer] ([place], [place], [place], [place]) Address [address] [place] [address] Care Team Providers Care Reliability Technician Name Role Phone Kesha Maxwell DO Primary Care Provider [phone] Reason for Visit * Reason Onset Date Comments CHECK STATUS OF EXISTING REFERRAL 12/18/2024 Encounter Details Date Type Department Care Team (Late st Contact Info) Description 12/18/2024 Telephone [facility] Primary Care [address] [place] [address] Kesha Maxwell DO [address] [place] [address] CHECK STATUS OF EXISTING REFERRAL Social History Tobacco Use Types Packs/Day Years Used Date Smoking Tobacco: Never Smokeless Tobacco: Never Alcohol Use Standard Drinks/Week Comments Yes 5 (1 standard drink = 0.6 oz pure alcohol) I do like to sip on a plain shot of alcohol at night. [facility] - Mental Health Answer Date Recorde [...] Telephone Encounter - Bot NIRALI James - 12/18/2024 10:17 AM EDT FROM: Christy Bishop TO: [facility] CLINICAL TRACK REPAIR PERSON [[id number]] SUBJECT: Referral Request PROVIDER: KESHA MAXWELL [[id number]] DEPARTMENT: [facility] [employer] [[id number]] ENCOUNTER REASON FOR CALL: CHECK STATUS OF EXISTING REFERRAL ENCOUNTER TYPE: Telephone CALLING TO: Check status of existing referral TYPE OF REFERRAL/SPECIALTY (EX. DERMATOLOGY, IMAGING, ETC.): Trung IF A REFERRAL IS PENDING FURTHER TESTING, HAS TESTING BEEN COMPLETED? No IF NO, HAS THE PATIENT BEEN PROVIDED WITH INFORMATION? No IF A REFERRAL IS PENDING FURTHER INFORMATION, HAS THE PATIENT BEEN MADE AWARE? NA LAST VISIT: 2024-12-12 NEXT VISIT DATE IS NOT APPLICABLE: Yes MESSAGE PRIORITY: Routine ADDITIONAL INFORMATION: Patient called and stated she would like to proceed with referral to GI [facility] Elvin Maradiaga [facility]. CALLER'S NAME: Jada Joseph RELATION TO PATIENT: Self [1] PREFERRED LANGUAGE: Palestinian BEST CALL BACK PHONE NUMBER: Home Phone: ([phone]) WHAT IS THE BEST WAY FOR THE OFFICE TO CONTACT YOU?: OK to leave message on voicemail documented in this encounter Plan of Treatment Upcoming Encounters Date Type Department Care Team (Latest Contact Info) Description 02/20/2025 3:45 PM EDT Video - Telemedicine [facility] Primary Care [address] [place] [address] Kesha Maxwell DO [address] [place] [address] 02/25/2025 9:31 AM EDT Hospital Encounter [facility] Surgery Department [address] [place] [address] Rebeka Taveras MD [address] [facility] [address] [place] [address] 02/25/2025 9:31 AM EDT - 02/25/2025 1:51 PM EDT Surgery [facility] Surgery Department [address] [place] [address] Rebeka Taveras MD [address] [facility] [address] [place] [address] LAPAROSCOPY WITH ROBOTIC ASSISTNACE AND LASER, MYOMECTOMY, [...] on filedocumented in this encounter Care Teams Reliability Technician Relationship Specialty Start Date End Date Kesha Maxwell, DO [address] [place] [address] PCP - General Family Medicine 11/30/24 documented as of this encounter
--- OUTSIDE RECORDS SUMMARY | 2025-02-12 11:36 | XMS_ITS | Encounter Summary ---
Author Organization [employer] ([place], [place], [place], [place]) Address [address] [place] [address] Care Team Providers Care Die Fitter Name Role Phone Jared Kauffmanjyoti Primary Care Provider [phone] Reason for Visit * Reason Onset Date Comments Procedure 12/14/2024 Called pt to celso edule her surgery, she will call me back when she is ready to schedule it Encounter Details Date Type Department Care Team (Late st Contact Info) Description 12/14/2024 Telephone [facility] - [facility] [address] [facility] [address] [place] [address] Tootie Turner, DO [address] [place] [address] Procedure (Called pt to schedule her surgery, she will call me back when she is ready to schedule it) Social History Tobacco Use Types Packs/Day Years [...] encounter Miscellaneous Notes * Telephone Encounter - Emily Chaudhari - 12/14/2024 10:39 AM EDT ----- Message from Nurse Sara Ybarra sent at 12/12/2024 11:51 AM EDT ----- Regarding: Surgery Procedure orders placed for TLH, BS, cysto. Dx: menorrhagia with regular cycles, dysmenorrhea, intermenstrual bleeding. Consent signed in clinic. Thank you documented in this encounter Plan of Treatment Upcoming Encounters Date Type Department Care Team (Latest Contact Info) Description 02/20/2025 3:45 PM EDT Video - Telemedicine [facility] Primary Care [address] [place] [address] Marni Kauffman DO [address] [place] [address] 02/25/2025 9:31 AM EDT Hospital Encounter [facility] Surgery Department [address] [place] [address] Rebeka Taveras MD [address] [place] [address] 02/25/2025 9:31 AM EDT - 02/25/2025 1:51 PM EDT Surgery [facility] Surgery Department [address] [place] [address] Rebeka Taveras MD [address] [place] [address] LAPAROSCOPY WITH ROBOTIC ASSISTNACE AND LASER, MYOMECTOMY, POSSIBLE RESECTION OF ENDOMETRIOSIS, HYSTEROSCOPY, ENDOMETRIAL ABLATION Scheduled Procedures Name Priority Associated Diagnoses Date/Ti mi ROBOTIC LAPAROSCOPY,MYOMECTOMY Submucous leiomyoma of uterus Intramural [...] on filedocumented in this encounter Care Teams Die Fitter Relationship Specialty Start Date End Date Marni Kauffman DO [address] [place] [address] PCP - General Family Medicine 11/30/24 documented as of this encounter
--- OUTSIDE RECORDS SUMMARY | 2025-02-12 11:36 | XMS_ITS | Encounter Summary ---
Author Organization [employer] ([place], [place], [place], [place]) Address [address] [place] [address] Care Team Providers Care Student Services Vice President Name Role Phone Marni Kauffman DO Primary Care Provider [phone] Encounter Details Date Type Department Care Team (Late st Contact Info) Description 11/19/2024 Abstract [facility] Primary Care [address] [place] [address] Marni Kauffman DO [address] [place] [address] Social History Tobacco Use Types Packs/Day Years Used Date Smoking Tobacco: Never Assessed Comments Unknown Sex and Gender Information Value Date Recorded Sex Assigned at Not on file Legal Sex Female 9:01 AM CDT Gender Identity Not on file Sexual Orientation Not on file documented as of this encounter Functional Status documented as of this encounter Plan of Treatment Upcoming Encounters Date Type Department Care Team (Latest Contact Info) Description 02/20/2025 3:45 PM EDT Video - Telemedicine [facility] Primary Care [address] [place] [address] Marni Kauffman DO [address] [place] [address] 02/25/2025 9:31 AM EDT Hospital Encounter [facility] Surgery Department [address] [place] [address] Rebeka Taveras MD [address] [place] [address] 02/25/2025 9:31 AM EDT - 02/25/2025 1:51 PM EDT Surgery [facility] Surgery Department [address] [place] [address] Rebeka Taveras MD [address] [facility] [address] [place] [address] LAPAROSCOPY WITH ROBOTIC ASSISTNACE AND LASER, MYOMECTOMY, POSSIBLE RESECTION OF ENDOMETRIOSIS, HYSTEROSCOPY, ENDOMETRIAL ABLATION Scheduled Procedures Name Priority Associated Diagnoses Date/Ti ny ROBOTIC LAPAROSCOPY,MYOMECTOMY Submucous leiomyoma of uterus Intramural [...] on filedocumented in this encounter Care Teams Student Services Vice President Relationship Specialty Start Date End Date Marni Kauffman DO [address] [place], [place] [id number] PCP - General Family Medicine 11/30/24 documented as of this encounter
--- NOTE | 2025-02-12 11:37 | XR_ITS ---
FINAL REPORT CLINICAL HISTORY: Assess fecal burden COMPARISON: None FINDINGS: ABDOMEN SINGLE VIEW / KUB A single view of the abdomen was obtained with a coned down view of the pelvis. There is a a moderate stool burden. There are no abnormally dilated loops of small bowel. No abnormal calcification is identified. IMPRESSION: Moderate stool burden. Reviewed, Interpreted and Dictated by Johann Gauthier MD Transcribed by Tootie Medina Authenticated and [facility]
== END 2025-02-12 23:59 | disposition home or self-care (01) ==
LOC: RAD 11:34
PROVIDERS: PCP Family Medicine; Visit Provider Internal Medicine Gastroenterology
DX: K59.00 Constipation, unspecified (principal)
CPT/HCPCS: 74018